=== PATIENT | male | born 1960 | race Caucasian/White ===

== ENCOUNTER → 2019-10-08 13:01 | Outpatient (CLI) | payer OTHER, SELFPAY ==
[2019-10-08 15:54] LABS: Coronavirus 19 IgG Antibody Negative (Negative); Coronavirus 19 IgM Antibody Negative (Negative)
== END ==
PROVIDERS: Visit Provider Surgery
DX: Z01.818 Encounter for other preprocedural examination (principal)
CPT/HCPCS: 36415; 86328

== ENCOUNTER 2019-10-10 06:35 | Day surgery (SDC) | payer OTHER, SELFPAY ==
[2019-10-09 09:53] VITALS: BMI 38.9
[2019-10-10 06:49] VITALS: BP 130/79; PULSE 95; RESP 18; TEMP 36.9; O2SAT 98
--- NOTE | 2019-10-10 07:07 | HMH.ANESCL ---
[facility] Anesthesia Checklist - Patient Identification Patient Identification: Arm Band, Verbal (Name & ) - Structural Data Admitted From: Home Planned Operative Procedure/s: colonoscopy Consent for Planned Operative Procedure(s) Verified: Yes Verified Documents: History and Physical - NPO Status Verified Time NPO: 00:00 - Chart Verification Results Verified: CBC, BMP - Additional verifications Patient : No Anesthesia Reactions: No Hx Blood Transfusions: No Blood Transfusion Reaction: No Cephalosporin Allergy: No Previous Colonoscopy: Yes - Cardiovascular Assessment Heart Sounds: S1 & S2 Pulse Strength: Baseline Pulse Rhythm: Regular Peripheral Edema: No - Airway Assessment C-Spine Mobility Assessed: Yes TMJ Mobility Assessed: Yes Dentition: Poor Dentition - Neurological Assessment Level of Consciousness: Awake, Alert, Appropriate Hx Seizures: No Numbness or tingling in extremities: No - Anesthesia Plan Anesthesia Risk discussed: Yes Anesthesia Plan: Verified ASA Class: III Anesthesia Type: MAC [facility] History I have reviewed the patient's past medical history: Yes Medical History: Reports:: Hyperlipidemia, Hypertension Denies:: Cancer, Diabetes Mellitus Type 1, Diabetes Mellitus Type 2, Internal Pacemaker, Lung Disease, MRSA, Seizures *Have you ever received a pneumonia vaccine?: No *Have you received a flu vaccine this season?: Yes Other Medical History: Denies: Blood Transfusion Reaction Anesthesia experience/problems:: none Other Surgeries: Yes: Colonoscopy, Other. No: Pacemaker Amputation: No Fractures: Yes (pelvis, collar bone) - *Social History Educational Level: Attended High School Smoking Status: Never smoker Alcohol Intake: never Substance Use Type: other *Occupational Status:: employed Housing: house Household Members: other *Travel in the last 8 weeks: None Family Hx:: No significant family history
[2019-10-10 07:15] VITALS: O2SAT 98
[2019-10-10 08:04] VITALS: BP 86/63; PULSE 86; RESP 18; TEMP 36.4; O2SAT 94
--- NOTE | 2019-10-10 08:05 | HMH.SCOPE ---
- Procedure: Date: 10/10/19 Procedure Performed:: Colonoscopy with polypectomy Indications:: History of multiple complex polyps Diverticulosis Hemorrhoids Performing Provider:: Kyle Barrera MD Referring Provider:: . Sedation:: Monitored anesthesia care Procedure:: After informed consent was obtained the patient was taken to the endoscopy suite. Sedation ensued after the patient was transferred to the left lateral decubitus position. Pulse, blood pressure, and oxygen saturation were monitored throughout the procedure. Digital rectal exam revealed no significant abnormality. The colonoscope was placed in position. The entire colon was evaluated. The colonoscope was carefully removed and the patient was transferred to recovery in stable condition. Please see findings and specimens below for detail. Findings:: Bowel preparation fair to moderate Fairly significant spasticity/lack of relaxation Diverticulosis throughout colon Complex polyps (see specimens) Specimens:: Transverse colon polyp Complex sessile polyp at 30 cm (snare) Complex lobulated polyp at 15 cm (snare) Recommendations:: Timing of repeat colonoscopy is pending pathology but will likely be between 2-3 years secondary to history of significant complex polyps, complex polyps on short-term repeat evaluation, slightly-limiting bowel preparation, and tortuosity/spasticity. Complications:: No immediate Estimated blood obtained (mL): 1
[2019-10-10 08:14] VITALS: BP 97/68; PULSE 91; RESP 18; TEMP 36.4; O2SAT 96
[2019-10-10 08:24] VITALS: BP 113/80; PULSE 79; RESP 18; TEMP 36.4; O2SAT 98
[2019-10-10 08:35] VITALS: BP 111/74; PULSE 84; RESP 20; TEMP 36.4; O2SAT 98
== END 2019-10-10 08:35 | disposition home or self-care (01) ==
LOC: OUTP 06:37
PROVIDERS: PCP Family Medicine; Visit Provider Surgery
PROC: 0DJD8ZZ Inspection of Lower Intestinal Tract, Via Natural or Artificial Opening Endoscopic (ICD-10-PCS; CPT 45385; principal; 2019-10-10 07:30)
DX: Z12.11 Encounter for screening for malignant neoplasm of colon (principal); K63.5 Polyp of colon; K58.9 Irritable bowel syndrome, unspecified; K57.30 Diverticulosis of large intestine without perforation or abscess without bleeding; Z86.010 Personal history of colon polyps; Z79.02 Long term (current) use of antithrombotics/antiplatelets; Z79.899 Other long term (current) drug therapy; I10 Essential (primary) hypertension; E78.5 Hyperlipidemia, unspecified
CPT/HCPCS: 45385; J2704

== ENCOUNTER → 2020-02-05 10:37 | Outpatient (CLI) | payer OTHER, SELFPAY ==
[2020-02-05 19:43] LABS: Covid-19 Nasal PCR Sendout Lex NOT DETECTED
== END ==
PROVIDERS: PCP Family Medicine; Visit Provider Family Medicine
DX: Z03.818 Encounter for observation for suspected exposure to other biological agents ruled out (principal)
CPT/HCPCS: U0004